=== PATIENT | female | born 1975 | race Two or more races ===

== ENCOUNTER 2025-01-26 20:29 | Emergency (ER) | payer MEDICAID, SELFPAY ==
--- NOTE | 2025-01-26 20:40 | PD.EDSOB ---
ED SOB =RME/HPI General Chief Complaint: Shortness of Breath/Dyspnea Stated Complaint: SHORTNESS OF BREATH Time Seen by Provider: 01/26/25 21:08 Arrival date/time: 01/26/25 20:29 RME / HPI RME / HPI Narrative: See [facility] for Dr. Pedroza's HPI Documentation. Related Data Previous Rx's ?Medication ?Instructions ?Recorded Hydrocodone/Acetaminophen * (NORCO 1 tab PO Q6H PRN pain #28 tabs 10/20/15 5/325 *) TRIMETHOPRIM/SULFAMETHOXAZOLE 1 tab PO Q12HR Infection #14 tabs 10/20/15 (Bactrim Ds) cefdinir 300 mg capsule 300 mg PO BID #14 caps 01/26/25 metoprolol succinate 50 mg 50 mg PO BID #60 tabs 01/26/25 tablet,extended release 24 hr ondansetron 4 mg disintegrating 4 mg PO TID PRN nausea and 01/26/25 tablet vomiting 30 days #10 tabs Allergies Allergy/AdvReac Type Severity Reaction Status Date / Time ibuprofen Allergy Severe Anaphylaxis Verified 01/26/25 22:30 naproxen (From Aleve) Allergy Severe Anaphylaxis Verified 01/26/25 22:30 aspirin Allergy Unknown Unverified 01/26/25 22:30 Review of Systems Review of Systems Systems Reviewed: All systems reviewed, normal except as documented ED Exam Narrative Physical exam: See [facility] for Dr. Pedroza's Physical Exam Documentation. Course Quality Measures none Orders Category Date Time Status Bedside COVID-19 Antigen Test NOW Care 01/26/25 20:44 Completed EKG (ED ONLY) *Do not use* NOW Care 01/26/25 20:46 Completed Saline [Insert IV] NOW Care 01/26/25 20:44 Completed EKG (ED Only) Stat Exams 01/26/25 20:46 Ordered XR chest 1V portable Stat Exams 01/26/25 20:46 Completed Amylase Stat Lab 01/26/25 20:54 Completed BNP [B-Type Natriuretic Peptide] Stat Lab 01/26/25 20:54 Completed Bilirubin,Direct Stat Lab 01/26/25 20:54 Completed Blood Culture (Lab) Stat Lab 01/26/25 21:19 Received CBC Stat Lab 01/26/25 20:54 Completed CMP [Comprehensive Metabolic Panel] Stat Lab 01/26/25 20:54 Completed CRP [C-Reactive Protein] Stat Lab 01/26/25 20:54 Completed D-Dimer Stat Lab 01/26/25 20:54 Completed ESR [Sed Rate (ESR)] Stat Lab 01/26/25 20:54 Completed HCG Qualitative,Urine Stat Lab 01/26/25 20:54 Completed HCG,Qualitative Serum Stat Lab 01/26/25 20:54 Completed Hemoglobin A1C [Glycohemoglobin w (eAG)] Stat Lab 01/26/25 20:54 Completed Influenza A & B Rapid Panel Stat Lab 01/26/25 20:54 Completed Lactate (Lactic Acid) Stat Lab 01/26/25 20:54 Completed Lipase Stat Lab 01/26/25 20:54 Completed Magnesium Stat Lab 01/26/25 20:54 Completed Procalcitonin Stat Lab 01/26/25 20:54 Completed TSH [Thyroid Stimulating Hormone] Stat Lab 01/26/25 20:54 Completed Troponin I Stat Lab 01/26/25 20:54 Completed UA, C/S IF [Urinalysis, C/S if Indicated] Stat Lab 01/26/25 20:54 Completed Urine Culture Stat Lab 01/26/25 20:54 Received Cefepime Inj [Maxipime Inj] 2 gm Med 01/26/25 21:49 Discontinued SODIUM CHLORIDE 0.9% (Popper) [Ns 0.9% (P)] 50 ml IV X1 Metoprolol Tartrate Inj [Lopressor Inj] Med 01/26/25 21:49 Discontinued 5 mg IVP X1 ONE Metoprolol Tartrate [Lopressor] Med 01/26/25 20:44 Discontinued 5 mg PO X1 ONE Metoprolol Tartrate [Lopressor] Med 01/26/25 21:03 Discontinued 50 mg PO X1 ONE Ondansetron Inj [Zofran Inj] Med 01/26/25 20:44 Discontinued 4 mg IVP X1 ONE POTASSIUM CHL 10% Liq 15 ML Med 01/26/25 21:51 Discontinued 40 meq PO X1 ONE Sodium Chloride 0.9% 1000 ml [Ns] 1,000 ml Med 01/26/25 20:44 Discontinued IV 999 mls/hr cefTRIAXone/D5w 1gm IV premix [Rocephin/D5w 1gm IV Med 01/26/25 22:17 Discontinued premix] 1 gm in 50 ml IV X1 Vital Signs Vital signs: Vital Signs Temperature 98.9 F 01/26/25 20:41 Pulse Rate 131 H 01/26/25 20:41 Respiratory Rate 24 H 01/26/25 20:41 Blood Pressure 164/93 H 01/26/25 20:41 Pulse Oximetry (%) 99 01/26/25 20:41 Oxygen Delivery Method Room Air 01/26/25 20:41 Shortness of Breath / Dyspnea MDM Narrative MDM Narrative:: This section includes all my notes and documentations, including HPI, PE, and ED course. Reji Pedroza MD HPI: 49 y/o female BIBA from home with dysuria for many days and brief episode of shortness of breath few hours ago. And palpitations. No other complaints. ROS: All negative except as documented in HPI. Physical Exam: General: Alert and oriented. No acute distress when remaining still. High BP noted. Eyes: Conjunctivae and lids clear. ENT: No nasal congestion. Pharynx normal. TM normal bilaterally. Neck: Supple. Heart: Tachycardia with regular rhythm. Lungs: No respiratory distress. Good air movement. No rhonchi, wheezing, rales. Abdomen: Soft and nontender. Normal bowel sounds. No distension. No rebound or guarding. Back: No CVA tenderness. Skin: Warm and dry. Neuro: Alert and oriented X 3. I reviewed EMS notes. I reviewed all diagnostic test results: My interpretation of the EKG is: Sinus tachycardia (120 bpm) with nonspecific ST-T changes. My interpretation of the chest x-ray is: NAD. Blood tests and urine tests remarkable for UTI and K 3.0. Covid/Influenza: Negative. At this point, diagnoses include: UTI High BP with tachycardia Treatment here included: IVF Zofran 4 mg IV Rocephin 1 g IV Oral KCl 40 mEq Metoprolol 5 mg IV Oral metoprolol 50 mg Significant improvement noted. Recommended more outpatient care. Based on my best medical judgment, made decision no further evaluation or treatment indicated at this time. Patient understands and agrees to the discharge instructions customized and printed, see below. Discharge instructions from Dr. Pedroza: 1. After extensive evaluation, there is no life-threatening condition. Such as heart attack or pulmonary embolism (blood clots in your lungs) or pneumothorax (collapsed lung). 2. Take cefdinir to kill the germs causing the infection. For good hydration, increase oral fluid and maintain clear urine. If dark or yellow, increase oral fluid. Zofran for nausea/vomiting. 3. Take metoprolol as prescribed. You will live longer with lower BP and slower heart rate 4. See a private doctor on 01/28/2025. To make sure there is no serious underlying heart condition, ask to help you get more tests for your heart that cannot be done here in the ER. Such as Holter Monitor (cardiac monitoring at home from a day to even a month), heart stress test (on treadmill or with medication), echocardiogram (imaging of your heart structures), heart catherization (checking for blockages in your heart arteries), and a referral to see a Cna. Ask to review all test results and official radiology reports, to make sure you receive all necessary follow-ups and monitoring, including final urine culture results from today. 5. Seek immediate medical care with worsening or with any concerns. Reji Pedroza MD Patient data External records reviewed:: [facility] previous records (No prior ED records available for review) and EMS form Clinical information provided by:: patient and EMS Social determinants that could affect healthcare access:: none Patient has the following chronic illnesses:: None reported How is presenting disease/condition affected by chronic disease/condition?: no chronic disease Evaluation data The following diagnostics were reviewed and interpreted by me:: lab results, radiology exam(s) and EKG tracing(s) (My interpretation of the EKG is: Sinus tachycardia (120 bpm) with nonspecific ST-T changes. Reji Pedroza MD) Lab and/or radiology exams considered but not ordered:: None Interpretation Summary: I reviewed all diagnostic test results: My interpretation of the EKG is: Sinus tachycardia (120 bpm) with nonspecific ST-T changes. My interpretation of the chest x-ray is: NAD. Blood tests and urine tests remarkable for UTI and K 3.0. Covid/Influenza: Negative. Medications / Prescriptions Medications or Prescriptions considered but not ordered:: None Medication administrations:: Medication Administration History Discontinued Medications Sodium Chloride (Ns) 1,000 mls @ 999 mls/hr IV .Q1H1M ONE Stop: 01/26/25 21:44 Last Infusion: 01/26/25 22:05 Dose: Infused Documented By: Admin: 01/26/25 21:04 Dose: 999 mls/hr Documented By: EF Cefepime HCl 2 gm/ Sodium (Chloride) 50 mls @ 100 mls/hr IV X1 ONE Stop: 01/26/25 22:18 Last Admin: 01/26/25 22:20 Dose: Not Given Documented By: EF Non-Admin Reason: Cancelled by Provider Ceftriaxone Sodium/Dextrose (Rocephin/D5w 1gm Iv Premix) 1 gm in 50 mls @ 100 mls/hr IV X1 ONE Stop: 01/26/25 22:46 Last Infusion: 01/26/25 22:51 Dose: Infused Documented By: Admin: 01/26/25 22:24 Dose: 100 mls/hr Documented By: EF Metoprolol Tartrate (Metoprolol Tartrate 25 Mg Tablet) 5 mg PO X1 ONE Stop: 01/26/25 20:45 Last Admin: 01/26/25 21:22 Dose: Not Given Documented By: EF Non-Admin Reason: Cancelled by Provider Metoprolol Tartrate (Metoprolol Tartrate 25 Mg Tablet) 50 mg PO X1 ONE Stop: 01/26/25 21:04 Last Admin: 01/26/25 21:23 Dose: 50 mg Documented By: EF Metoprolol Tartrate (Metoprolol Tartrate Inj 1 Mg/Ml Amp 5 Ml) 5 mg IVP X1 ONE Stop: 01/26/25 21:50 Last Admin: 01/26/25 22:23 Dose: 5 mg Documented By: EF Ondansetron HCl (Ondansetron Inj 2 Mg/Ml Inj 2 Ml) 4 mg IVP X1 ONE; Protocol Stop: 01/26/25 20:45 Last Admin: 01/26/25 21:05 Dose: 4 mg Documented By: EF Potassium Chloride (Potassium Chloride 10% 20 Meq/15 Ml Udc) 40 meq PO X1 ONE Stop: 01/26/25 21:52 Last Admin: 01/26/25 22:23 Dose: 40 meq Documented By: EF Treatment here included: IVF Zofran 4 mg IV Rocephin 1 g IV Oral KCl 40 mEq Metoprolol 5 mg IV Oral metoprolol 50 mg Consultations Consultation(s) initiated? (list below): No Diagnosis Shortness of Breath Differential Diagnosis: congestive heart failure, community acquired pneumonia and pulmonary embolism Most likely diagnosis given after review of the tests above:: UTI High BP and tachycardia Admission Indicated Admission indicated?: not indicated Explain why admission is indicated or not indicated:: With significant improvement and no condition needing emergent intervention, there was no indication for admission. Admission Request Was there a request for admission?: No Disposition Plan Disposition Plan: Discharge Discharge Attestation Discharge Attestation: The patient and all family members were given an opportunity to ask questions and understood the discharge instructions. Discharge instructions specifically effects, indications for sooner follow up or return to the emergency department, and the expected course of current diagnosis. Patient condition: Stable Discharge Plan Plan Patient Disposition: HOME (Self Care) Prescriptions/Referrals Prescriptions/Med Rec: New metoprolol succinate 50 mg tablet extended release 24 hr 50 mg PO BID Qty: 60 0RF ondansetron 4 mg tablet,disintegrating 4 mg PO TID PRN (Reason: nausea and vomiting) 30 Days Qty: 10 0RF cefdinir 300 mg capsule 300 mg PO BID Qty: 14 0RF No Action Hydrocodone/Acetaminophen * (NORCO 5/325 *) 1 TAB tablet 1 tab PO Q6H PRN (Reason: pain) Qty: 28 0RF TRIMETHOPRIM/SULFAMETHOXAZOLE (Bactrim Ds) 1 TAB tablet 1 tab PO Q12HR Qty: 14 0RF Referrals: Gianluca Peter MD [Primary Care Provider, [facility]] - In 1 week Problem List Clinical Impression: Urinary tract infection Patient/Caregiver Discharge Instructions Discharge Activity: activity as tolerated Education Materials: ED Hypertension, New (Begin Treatment), ED CYSTITIS Female Adult Additional Instructions: Discharge instructions from Dr. Pedroza: 1. After extensive evaluation, there is no life-threatening condition. Such as heart attack or pulmonary embolism (blood clots in your lungs) or pneumothorax (collapsed lung). 2. Take cefdinir to kill the germs causing the infection. For good hydration, increase oral fluid and maintain clear urine. If dark or yellow, increase oral fluid. Zofran for nausea/vomiting. 3. Take metoprolol as prescribed. You will live longer with lower BP and slower heart rate 4. See a private doctor on 01/28/2025. To make sure there is no serious underlying heart condition, ask to help you get more tests for your heart that cannot be done here in the ER. Such as Holter Monitor (cardiac monitoring at home from a day to even a month), heart stress test (on treadmill or with medication), echocardiogram (imaging of your heart structures), heart catherization (checking for blockages in your heart arteries), and a referral to see a Cna. Ask to review all test results and official radiology reports, to make sure you receive all necessary follow-ups and monitoring, including final urine culture results from today. 5. Seek immediate medical care with worsening or with any concerns. Print Language: [place] Stand Alone Forms: Sarah Award Info., Patient Portal Info Letter
[2025-01-26 20:41] VITALS: BP 164/93; PULSE 131; PULSE 140; RESP 20; RESP 24; TEMP 37.2; O2SAT 97; O2SAT 99; BMI 32.9
--- NOTE | 2025-01-26 20:46 | XR_ITS ---
EXAMINATION: AP chest single view TECHNIQUE: AP portable upright chest single view Date and time: 0.1, 2024, 2050 hours INDICATIONS: Shortness of breath today. FINDINGS: Normal heart size. Lungs are clear. The osseous rectors are intact. IMPRESSION: No active disease
[2025-01-26 21:01] LABS: Lactate (Lactic Acid) 3.3 mMol/L (0.4-2.0)
[2025-01-26 21:04] LABS: Collection Type, Urine Clean Catch
[2025-01-26] MEDS: SODIUM CHLORIDE 0.9% 1000 ML 1,000 ML 999 ML IV (21:04)
[2025-01-26] MEDS: ONDANSETRON INJ 2 MG/ML INJ 2 ML 4 MG IVP (21:05)
[2025-01-26 21:11] LABS: HCG Qualitative,Urine Negative; Sed Rate (ESR) 30 mm/hr (0-30)
[2025-01-26 21:13] LABS: Basophils # (Auto) 0.1 Thou/mm3 (0.0-0.2); Basophils % (Auto) 1 % (0-2.5); Eosinophils # (Auto) 0.1 Thou/mm3 (0.0-0.5); Eosinophils % (Auto) 1 % (0-10); Hematocrit 45.2 % (36.0-46.0); Hemoglobin 15.5 g/dL (12.0-16.0); Immature Granulocytes Auto 0.01 Thou/mm3 (0.00-0.00); Lymphocytes # (Auto) 4.3 Thou/mm3 (1.0-4.8); Lymphocytes % (Auto) 48 % (10-50); Mean Corpuscular HGB Conc 34.3 g/dl (31.0-37.0); Mean Corpuscular Hemoglobin 29.6 pg (25.0-35.0); Mean Corpuscular Volume 86 fL (80-100); Monocytes # (Auto) 0.5 Thou/mm3 (0.0-0.8); Monocytes % (Auto) 6 % (0-12); Neutrophils # (Auto) 3.9 Thou/mm3 (1.8-7.7); Neutrophils % (Auto) 44 % (37-80); Nucleated Red Blood Cell # 0.00 Thou/mm3 (0.00-0.00); Nucleated Red Blood Cell % 0 /100 WBC (0); Platelet Count 226 Thou/mm3 (140-440); RDW Standard Deviation 37.7 fL (36.4-46.3); Red Blood Count 5.24 Miln/mm3 (4.00-5.20); White Blood Count 8.9 Thou/mm3 (3.6-11.0)
[2025-01-26 21:20] LABS: Bacteria,Urine Rare; Bilirubin,Urine Negative (Negative); Blood,Urine Trace (Negative); Clarity,Urine Turbid (Clear/Hazy); Color,Urine Lt-Yellow (Lt Yel-Yel); Culture Indicated,Urine Contaminated; Glucose, Urine Negative (Negative); Ketones,Urine Negative (Negative); Leukocyte Esterase,Urine Positive (Negative); Nitrite,Urine Negative (Negative); PH,Urine 5.5 (5.0-7.0); Protein,Urine Negative (Neg - Trace); RBC,Urine 5 /hpf (0-3); Specific Gravity,Urine 1.018 (1.001-1.035); Squamous Epithelial Cell,Urine 11 /hpf (0-5); Urobilinogen,Urine Negative mg/dL (0.0-1.0); WBC,Urine 25 /hpf (0-5)
[2025-01-26 21:21] LABS: HCG,Qualitative Serum Negative
[2025-01-26 21:23] VITALS: BP 171/84; PULSE 123
[2025-01-26] MEDS: METOPROLOL TARTRATE 25 MG TABLET 50 MG PO (21:23)
[2025-01-26 21:25] LABS: D-Dimer < 250 ng/mL (<600)
[2025-01-26 21:35] LABS: B-Type Natriuretic Peptide < 20 pg/mL (0-100)
[2025-01-26 21:36] LABS: Influenza A Ag Negative; Influenza B Ag Negative
[2025-01-26 21:38] LABS: Alanine Aminotransferase 59 U/L (10-49); Albumin, Serum 5.1 gm/dL (3.5-5.0); Albumin/Globulin Ratio 1.5 (1.2-2.2); Alkaline Phosphatase 77 U/L (46-116); Amylase 79 U/L (30-118); Anion Gap 14 (7-16); Aspartate Amino Transferase 42 U/L (0-34); BUN/Creatinine Ratio 12 Ratio (12-20); Bilirubin,Direct 0.2 mg/dL (0.0-0.3); Bilirubin,Total 0.7 mg/dL (0.3-1.2); Blood Urea Nitrogen 11 mg/dL (9-23); Calcium 10.2 mg/dL (8.3-10.6); Calcium (Corrected) 10.2 mg/dL (8.5-10.1); Carbon Dioxide 24.1 mMol/L (20.0-31.0); Chloride 103 mMol/L (98-107); Creatinine (Component) 0.9 mg/dL (0.6-1.3); Estimated Creatinine Clearance 73.2 mL/min (>60); Globulin 3.4 gm/dL (2.3-3.5); Glucose 132 mg/dL (74-106); Lipase 35 U/L (12-53); Magnesium 2.0 mg/dL (1.6-2.6); Osmolality,Calculated 282 (275-295); Potassium 3.0 mMol/L (3.4-5.1); Procalcitonin 0.07 ng/ml (0.0-0.49); Sodium 141 mMol/L (136-145); Thyroid Stimulating Hormone 0.67 uIU/mL (0.55-4.78); Total Protein 8.5 gm/dL (5.7-8.2); Troponin I < 0.020 ng/mL (0.0-0.045); eGFR > 60 See Note
[2025-01-26 22:19] VITALS: BP 139/77; PULSE 121; RESP 18; TEMP 37.7; O2SAT 98
[2025-01-26 22:23] VITALS: BP 139/77; PULSE 116
[2025-01-26] MEDS: POTASSIUM CHLORIDE 10% 20 MEQ/15 ML UDC 40 MEQ PO (22:23)
[2025-01-26] MEDS: METOPROLOL TARTRATE INJ 1 MG/ML AMP 5 ML 5 MG IVP (22:23)
[2025-01-26] MEDS: cefTRIAXone/D5w 1gm IV premix 1 GM/50 ML BAG IV (22:24)
[2025-01-26 22:38] LABS: Glucose Estimated Average 131 mg/dL (80-131); Hemoglobin A1C 6.2 % Hgb (4.8-6.0)
[2025-01-27] LABS: Reflex Lactate? Y
[2025-01-27 01:20] LABS: C-Reactive Protein < 0.5 mg/dL (0.0-0.9)
== END 2025-01-26 22:55 | disposition home or self-care (01) ==
PROVIDERS: Emergency Provider Emergency Medicine; PCP Family Medicine
DX: N39.0 Urinary tract infection, site not specified (principal)
CPT/HCPCS: 36415; 71045; 80053; 81001; 81025; 82150; 82248; 83036; 83605; 83690; 83735; 83880; 84145; 84443; 84484; 84703; 85025; 85379; 85652; 86140; 87040; 87086; 87502; 87635; 93005; 96361; 96365; 96375; 99284; J0696; J2405; J3490; J7030; A9270